=== PATIENT | male | born 1955 | race Caucasian/White ===

== ENCOUNTER 2017-05-15 13:07 | Emergency (ER) | payer SELFPAY ==
--- NOTE | 2017-05-15 13:36 | UC ---
Throat Pain/Nasal Michael HPI - HPI Summary HPI Summary: Pt presents with left sided tongue/mouth pain for the last 3 days. He tells me that he has a 2 year history of reoccurring salivary stones. He usually is able to work them out on his own by chewing gum, sour candy, and massaging the area - this one is not coming out. He is now having pain in the left submandibular area. Still able to eat and drink, but with pain, Denies fever, chills, or recent illness. - History of Current Complaint Chief Complaint: UCGeneralIllness Stated Complaint: MOUTH SORE Time Seen by Provider: 05/15/17 13:31 Hx Obtained From: Patient Onset/Duration: Gradual Onset Severity: Severe Pain Intensity: 9 Pain Scale Used: 0-10 Numeric - Allergies/Home Medications Allergies/Adverse Reactions: Allergies Allergy/AdvReac Type Severity Reaction Status Date / Time No Known Allergies Allergy Verified 05/15/17 13:19 PMH/Surg Hx/FS Hx/Imm Hx - Surgical History Surgical History: Yes Surgery Procedure, Year, and Place: spinal surgery - Family History Known Family History: Positive: Unknown - Social History Lives: With Family Alcohol Use: None Substance Use Type: None Smoking Status (MU): Heavy Every Day Tobacco Smoker Type: Cigarettes Amount Used/How Often: 1/2 ppd Household Exposure Type: Cigarettes Cessation Counseling: Counseled 3+Min - 10 Min - Immunization History Most Recent Influenza Vaccination: NOT UTD Review of Systems Constitutional: Negative Skin: Negative Eyes: Negative ENT: Other - Salivary pain Respiratory: Negative Cardiovascular: Negative All Other Systems Reviewed And Are Negative: Yes Physical Exam Triage Information Reviewed: Yes Appearance: Well-Appearing, No Pain Distress, Well-Nourished Vital Signs: Initial Vital Signs Temp 97.6 F 05/15/17 13:09 Pulse 95 05/15/17 13:09 Resp 18 05/15/17 13:09 BP 113/84 05/15/17 13:09 Pulse Ox 96 05/15/17 13:09 Vital Signs Reviewed: Yes Eyes: Positive: Conjunctiva Clear. Negative: Conjunctiva Inflamed, Discharge ENT: Positive: Pharynx normal, TMs normal, Uvula midline, Other - ~2-3mm stone in the left salivary duct that appears to be moderately obstructive.. Negative : Pharyngeal erythema, Nasal congestion, Nasal drainage, TM bulging, TM dull, TM red, Tonsillar swelling, Tonsillar exudate, Muffled voice, Hoarse voice, Dental tenderness, Sinus tenderness Dental: Negative: Dental Fracture @, Abscess @, Cellulitis @, Cervical Lymphadenopathy, Bleeding Neck: Positive: Supple, No Lymphadenopathy, Other: - TTP left submandibular Respiratory: Positive: Lungs clear, Normal breath sounds, No respiratory distress Cardiovascular: Positive: RRR, No Murmur, Pulses Normal Neurological: Positive: Alert Psychological: Positive: Age Appropriate Behavior Skin: Negative: rashes Throat Pain/Nasal Course/Dx - Course Course Of Treatment: Sialolithiasis with Sialoadenitis - refer to ENT. Continue with sour candy, gum, and massage. Will cover him for infection with Keflex and rx for lidocaine for pain. - Differential Dx/Diagnosis Provider Diagnoses: Sialolithiasis with Sialoadenitis left submandibular Discharge - Discharge Plan Condition: Stable Disposition: HOME Prescriptions: Cephalexin CAP* [Keflex CAP*] 500 mg PO TID #14 cap Lidocaine 2% VISCOUS* [Xylocaine 2% Viscous*] 10 ml SWISH SPIT BID PRN #100 ml PRN Reason: Pain Patient Education Materials: Sialoadenitis (ED) Referrals: No Primary Care Phys,NOPCP [Primary Care Provider] - Reinaldo Batista MD [Medical Doctor] - As Soon As Possible Additional Instructions: If you develop a fever, shortness of breath, chest pain, new or worsening symptoms - please call your PCP or go to the ED.
== END 2017-05-15 13:52 | disposition home or self-care (01) ==
LOC: UCEAST 13:07
DX: K11.5 Sialolithiasis (principal); K11.20 Sialoadenitis, unspecified; Z71.6 Tobacco abuse counseling; F17.210 Nicotine dependence, cigarettes, uncomplicated
CPT/HCPCS: 99202; G0463

== ENCOUNTER 2017-07-27 11:14 | Emergency (ER) | payer MEDICARE ==
--- NOTE | 2017-07-27 13:05 | RAD ---
INDICATION: Left hip pain. COMPARISON: There are no prior studies available for comparison. TECHNIQUE: An AP view of the pelvis and frontal and lateral views of the left hip were obtained. FINDINGS: The bones are in normal alignment. No fracture is seen. There is mild bilateral osteoarthritic change in the hips. IMPRESSION: MILD BILATERAL OSTEOARTHRITIC CHANGE IN THE HIPS.
[2017-07-27] MEDS ORDERED: Ketorolac INJ* 30 MG/ML 1 ML VIAL IM ONE (13:09)
[2017-07-27 13:38] VITALS: BP 111/87
--- NOTE | 2017-07-28 08:07 | ED ---
Josue Leon Angela scribed for Florencio Obrien MD on 07/27/17 at 1157 . Lower Extremity - HPI Summary HPI Summary: Pt is a 61 y/o male [facility] c/o left hip pain s/p fall a couple of days ago. Pt reports he fell 2 days ago, injuring his left hip. Denies head strike or LOC. Pt notes he is able to ambulate but it is painful. His pain is aggravated with leg movement. His pain is alleviated with rest. At its worst his pain is rated 9 out of 10 in severity. At rest his pain is rated 6/10 in severity. Denies knee pain. - History of Current Complaint Stated Complaint: FALL/LT HIP Time Seen by Provider: 07/27/17 11:47 Hx Obtained From: Patient Mechanism Of Injury: Fall From A Standing Position Onset of Pain: Immediate Onset/Duration: Days Severity Currently: Moderate Pain Intensity: 7 Pain Scale Used: 0-10 Numeric Timing: Lasting Days Location: Is Discrete @ - left hip Associated Signs And Symptoms: Positive: Negative Aggravating Factor(s): Nothing Alleviating Factor(s): Nothing - Allergies/Home Medications Allergies/Adverse Reactions: Allergies Allergy/AdvReac Type Severity Reaction Status Date / Time No Known Allergies Allergy Verified 07/27/17 11:31 Home Medications: Home Medications Ibuprofen TAB* [Advil TAB*] 600 mg PO BID PRN 07/27/17 [History Confirmed ] PMH/Surg Hx/FS Hx/Imm Hx Endocrine/Hematology History: Denies: Hx Diabetes Cardiovascular History: Denies: Hx Hypertension Musculoskeletal History: Reports: Other Musculoskeletal History - C3-4 laminectomy and fusion, t-l bulging discs - Surgical History Surgery Procedure, Year, and Place: spinal surgery - Family History Known Family History: Negative: Hypertension, Diabetes Family History: Father: Alzheimer's - Social History Alcohol Use: None Substance Use Type: Reports: None Smoking Status (MU): Heavy Every Day Tobacco Smoker Type: Cigarettes Amount Used/How Often: 1/2 ppd Review of Systems Negative: Fever, Chills Cardiovascular: Negative Respiratory: Negative Gastrointestinal: Negative Musculoskeletal: Other - left hip pain Neurological: Negative All Other Systems Reviewed And Are Negative: Yes Physical Exam - Summary Physical Exam Summary: VITAL SIGNS: Reviewed. GENERAL: Patient is a well-developed and nourished male who is lying comfortable in the stretcher. Patient is not in any acute respiratory distress. HEAD AND FACE: No signs of trauma. No ecchymosis, hematomas or skull depressions. No sinus tenderness. EYES: PERRLA, EOMI x 2, No injected conjunctiva, no nystagmus. EARS: Hearing grossly intact. Ear canals and tympanic membranes are within normal limits. MOUTH: Oropharynx within normal limits. NECK: Supple, trachea is midline, no adenopathy, no JVD, no carotid bruit, no c- spine tenderness, neck with full ROM. CHEST: Symmetric, no tenderness at palpation LUNGS: Clear to auscultation bilaterally. No wheezing or crackles. CVS: Regular rate and rhythm, S1 and S2 present, no murmurs or gallops appreciated. ABDOMEN: Soft, non-tender. No signs of distention. No rebound no guarding, and no masses palpated. Bowel sounds are normal. EXTREMITIES: FROM in all major joints, no edema, no cyanosis or clubbing. NEURO: Alert and oriented x 3. No acute neurological deficits. Speech is normal and follows commands. SKIN: Dry and warm Triage Information Reviewed: Yes Vital Signs Reviewed: Yes Diagnostics - Laboratory Lab Statement: Any lab studies that have been ordered have been reviewed, and results considered in the medical decision making process. - Radiology Left hip and pelvis XR Xray Interpretation: Positive (See Comments) - IMPRESSION: mild bilateral osteoarthritic change in the hips. Dr. Obrien has reviewed this radiology report. Radiology Interpretation Completed By: Radiologist Re-Evaluation - Re-Evaluation First Eval Re-Evaluation Time: 13:35 Comment: I reviewed the XR results with the pt. He will be discharged home. Lower Extremity Course/Dx - Course Assessment/Plan: Pt is a 61 y/o male presenting to [facility] c/o left hip pain s/p fall a couple of days ago. Pt reports he fell 2 days ago, injuring his left hip. Denies head strike or LOC. Pt notes he is able to ambulate but it is painful. His pain is aggravated with leg movement. His pain is alleviated with rest. At its worst his pain is rated 9 out of 10 in severity. At rest his pain is rated 6/10 in severity. Denies knee pain. Left hip and pelvis XR is negative for an acute dislocation or fracture, it shows mild bilateral osteoarthritic change in the hips. In the ED course the pt was given Toradol for the pain and after this medication his pain decreased. Therefore, the pt will be discharged home with follow up from his PCP. I discussed all the findings and test results with the patient. All questions were answered to patient satisfaction. There were no further complaints or concerns. Pt was given a prescription for [place] for the pain. He is instructed to return to the ED for any worsening or new symptoms. Pt is hemodynamically stable, alert and oriented x3. - Diagnoses Provider Diagnoses: Left hip pain Discharge - Sign-Out/Discharge Documenting (check all that apply): Discharge - discharge to home - Discharge Plan Condition: Stable Disposition: HOME Prescriptions: Hydrocodone/Acetaminophen [[place] 5-325 Tablet] 1 each PO Q6H PRN #10 tablet MDD 4 PRN Reason: Pain Patient Education Materials: Hip Pain (ED) Referrals: No Primary Care Phys,NOPCP [Primary Care Provider] - [facility] [Outside] Additional Instructions: Please establish a primary care provider and follow up with your primary. RETURN TO THE ED FOR ANY NEW OR WORSENING SYMPTOMS. The documentation as recorded by the Josue dowd Angela accurately reflects the service I personally performed and the decisions made by me, Florencio Obrien MD.
== END 2017-07-27 13:36 | disposition home or self-care (01) ==
LOC: ED 11:14
DX: M25.552 Pain in left hip (principal); M16.0 Bilateral primary osteoarthritis of hip; F17.210 Nicotine dependence, cigarettes, uncomplicated
CPT/HCPCS: 96372; 99282; J1885

== ENCOUNTER 2017-10-18 06:02 | Observation (INO) | payer MEDICARE ==
[~2017-10-18 06:02] MED LIST: Buffered Lidocaine 0.9% SYRIN* 5 ML/SYR SYRINGE INTRADERM ONE
[2017-10-18] MEDS ORDERED: Buffered Lidocaine 0.9% SYRIN* 5 ML/SYR SYRINGE ONE (06:21)
[2017-10-18] MEDS ORDERED: ceFAZolin 2 GM PREMIX (*) 2 GM/50 ML BAG IVPB ONE (06:28)
[2017-10-18] MEDS ORDERED: Bacitracin IV* 50,000 UNITS INJ ONE (06:43)
[2017-10-18] MEDS ORDERED: Lidocaine 1% MPF wEPI 200,000* 30 ML SDV ONE (06:43)
[2017-10-18] MEDS ORDERED: Thrombin 5,000 UNITS* 1 APPLIC KIT - topical use - TOPICAL ONE (06:43)
[2017-10-18] MEDS ORDERED: fentaNYL* 50 MCG/ML 2 ML VIAL (100 MCG VIAL) ONE ×2 (07:07→07:57)
[2017-10-18] MEDS ORDERED: Midazolam* 1 MG/ML 2 ML VIAL (2 MG) ONE (07:08)
[2017-10-18] MEDS ORDERED: Lidocaine 2% PF * 5 ML VIAL ONE ×2 (07:30→07:51)
[2017-10-18] MEDS ORDERED: Mivacurium Chloride* 20 MG/10 ML VIAL IV ONE (07:32)
[2017-10-18] MEDS ORDERED: Famotidine IV* 10 MG/ML 2 ML (20 mg) ONE (07:32)
[2017-10-18] MEDS ORDERED: Dexamethasone IV* 4 MG/ML 1 ML (4 MG) ONE (07:32)
[2017-10-18] MEDS ORDERED: Propofol* 10 MG/ML 20 ML BTL IV PUSH ONE (07:32)
[2017-10-18] MEDS ORDERED: fentaNYL* 50 MCG/ML 2 ML VIAL (100 MCG VIAL) IV PRN (08:17)
[2017-10-18] MEDS ORDERED: PROCHLORPERAZINE INJ 5 MG/ML 2 ML VIAL IV PRN (08:17)
[2017-10-18] MEDS ORDERED: DiMENhydriNATE IV* 50 MG/ML VIAL IV PUSH PRN (08:17)
[2017-10-18] MEDS ORDERED: Acetaminophen TAB* 325 MG PO PRN ×2 (08:17→08:39)
[2017-10-18] MEDS ORDERED: diPHENhydraMINE IV* 50 MG/ML 1 ml VIAL (BENADRYL) IV PRN (08:17)
[2017-10-18] MEDS ORDERED: Nalbuphine* 10 MG/ML 1 ML VIAL IV PRN (08:17)
[2017-10-18] MEDS ORDERED: Levalbuterol 1.25MG/0.5ML NEB INH PRN (08:17)
[2017-10-18] MEDS ORDERED: Naloxone* 0.4 MG/ML 1 ML VIAL IV PRN (08:17)
[2017-10-18] MEDS ORDERED: HYDROcodone/ACETAMIN 5-325 MG* 1 TAB PO PRN (08:17)
[2017-10-18] MEDS ORDERED: Magnesium Hydroxide LIQ* 30 ML UDC PO PRN (08:39)
[2017-10-18] MEDS ORDERED: Ondansetron ODT TAB* 4 MG PO PRN (08:42)
[2017-10-18] MEDS ORDERED: Rosuvastatin (NF) 20 MG TAB PO SCH (09:00)
--- NOTE | 2017-10-18 10:02 | RAD ---
INDICATION: Back pain TECHNIQUE: A single crosstable lateral view was obtained in the operating room. FINDINGS: There is a surgical retracting device overlying the lower lumbar spine. There is a surgical device with the tip at the L4/L5 level. Degenerative changes of the lower lumbar spine are similar to prior imaging. IMPRESSION: Intraoperative crosstable lateral lumbar spine radiograph as described above.
[2017-10-18] MEDS ORDERED: HYDROcodone/ACETAMIN 5-325 MG* 1 TAB ONE (10:43)
[2017-10-18] MEDS ORDERED: Gabapentin CAP(*) 300 MG ONE (10:43)
[2017-10-18] MEDS: HYDROcodone/ACETAMIN 5-325 MG* 1 TAB PO PRN ×2 (10:44→15:15)
[2017-10-18] MEDS ORDERED: Nicotine Inhaler* 10 MG AMP INH PRN (10:45)
[2017-10-18] MEDS: Gabapentin CAP(*) 300 MG PO SCH ×2 (10:45→15:11)
[2017-10-18] MEDS ORDERED: Mouth Piece, Nicotine* 1 EACH CARTRIDGE INH PRN (10:45)
[2017-10-18] MEDS ORDERED: Nicotine PATCH 21 MG/24 HR* PATCH TRANSDERM SCH (11:00)
[2017-10-18] MEDS ORDERED: Atorvastatin* 40 MG TAB PO SCH (13:00)
--- NOTE | 2017-10-18 14:53 | PN ---
Progress Note - Progress Note Date of Service: 10/18/17 SOAP: Subjective: [S/p lumbar discectomy L4-5 left, POD #0. Patient complains of low back pain, lower extremity pain resolved. Ambulating independently. Eating, drinking and voiding without difficulty. Denies headache, nausea and vomiting. Feels well enough, would like to go home. ] Objective: [ Vital Signs: Temp Pulse Resp BP Pulse Ox 96.6 F 71 16 138/90 98 10/18/17 08:45 10/18/17 09:30 10/18/17 08:55 10/18/17 09:30 10/18/17 09:30 General: Alert and laying comfortably in bed. Neuro: Motor and sensory intact. Incision: Intact with jojo. No swelling or erythema. Dressing with small amount blood, dry dressing placed. ] Assessment: [Stable post-op. ] Plan: [1. Discharge home today. 2. Discharge instructions discussed with the patient. ]
[2017-10-18 15:20] VITALS: BP 133/80
[2017-10-19] MEDS ORDERED: Nicotine Patch Removal NOTE FOLLOW UP SCH (06:00)
--- NOTE | 2017-10-20 21:54 | OP ---
OPERATIVE REPORT: DATE OF OPERATION: 10/18/17 DATE OF : 59 PRIMARY SURGEON: Barron Connors MD JEWEL STAKER: SEBASTIAN Sanchez ANESTHESIA: General. PRE-OP DIAGNOSIS: Herniated nucleus pulposus L4-5 on the left. POST-OP DIAGNOSIS: Herniated nucleus pulposus L4-5 on the left. OPERATIVE PROCEDURE: Lumbar diskectomy L4-5 on the left with microdissection. DESCRIPTION OF OPERATION: After satisfactory general anesthesia was obtained, the patient was placed on the operating table in the prone position with the chest supported on the Aubrey frame and the ba ck slightly flexed. The lumbar region was then clipped, prepped and draped in a sterile manner for l umbar laminectomy and a skin incision outlined from L4 to L5. This incision was infiltrated with 1% Xylocaine with epinephrine after which it was turned down sharply to the level of the lumbar fascia. The fascia was divided along the spinous processes of L4 and L5 and the paraspinal musculature strip ped away from the posterior elements utilizing a periosteal elevator and a monopolar cautery. An int raoperative x-ray was obtained verifying proper interspace localization after which a partial hemilam inectomy was carried out by removing the inferior aspect of the L4 lamina and medial aspect of the fa cet complex with a combination of a Midas Eran drill and Kerrison rongeurs. This was carried superior ly until the attachment of ligamentum flavum was taken down. Ligamentum flavum was then removed with the Kerrison. At this point of procedure, the operating microscope was brought into the field and t he remainder of the procedure was done under microscopic visualization. Projecting beneath the L5 ner ve root was a subcapsular herniation of the disk material. An opening was made in the posterior long itudinal ligament and the disk space was cleared of any loose disk material using pituitary forceps a nd curettes. It was felt that a satisfactory decompression had been achieved. After assuring adequat e hemostasis, the wound was thoroughly irrigated after which a piece of Gelfoam was placed over the l aminectomy defect. The fascia was then reapproximated with 0 Vicryl sutures, the subcutaneous tissue s closed with 3-0 Vicryl suture, and the skin closed with skin clips. The estimated blood loss was l ess than 50 cc and the final sponge, padding, and needle counts were correct. The patient was taken to the recovery room extubated and in stable condition. [id number]/[facility] #: [id number]
== END 2017-10-18 16:29 | disposition home or self-care (01) ==
LOC: OR 06:02 → SSU 11:21
PROVIDERS: ADMIT Neurological Surgery; ATTEND Neurological Surgery
PROC: 0SB20ZZ Excision of Lumbar Vertebral Disc, Open Approach (ICD-10-PCS; 2017-10-18)
PROC: 01NB0ZZ Release Lumbar Nerve, Open Approach (ICD-10-PCS; principal; 2017-10-18 07:30)
DX: M51.26 Other intervertebral disc displacement, lumbar region (principal); F17.210 Nicotine dependence, cigarettes, uncomplicated; M51.16 Intervertebral disc disorders with radiculopathy, lumbar region
CPT/HCPCS: 72100; 88304; A9270-GY; G0378; J0690; J1100; J2001; J2250; J2704; J3010

== ENCOUNTER 2018-06-25 07:19 | Observation (INO) | payer MEDICARE ==
[~2018-06-25 07:19] MED LIST changes: -Buffered Lidocaine 0.9% SYRIN* 5 ML/SYR SYRINGE INTRADERM ONE; +Buffered Lidocaine 1% SYRIN* 1 ML/SYRINGE INTRADERM ONE; +Lactated Ringers 1000 ML Bag* 1,000 ML IV SCH
[2018-06-25] MEDS ORDERED: ceFAZolin 2 GM PREMIX in ORs 2 GM/50 ML BAG IVPB ONE (07:49)
[2018-06-25] MEDS ORDERED: Buffered Lidocaine 1% SYRIN* 1 ML/SYRINGE INTRADERM ONE (07:49)
[2018-06-25] MEDS ORDERED: Lidocaine 2% PF * 5 ML VIAL ONE (08:39)
[2018-06-25] MEDS ORDERED: fentaNYL* 50 MCG/ML 2 ML VIAL (100 MCG VIAL) ONE (08:39)
[2018-06-25] MEDS ORDERED: Propofol* 10 MG/ML 20 ML BTL ONE (08:39)
[2018-06-25] MEDS ORDERED: Midazolam* 1 MG/ML 2 ML VIAL (2 MG) ONE (08:39)
[2018-06-25] MEDS ORDERED: Rocuronium* 10 MG/ML VIAL ONE (08:39)
[2018-06-25] MEDS ORDERED: KETAMINE HCL* 50 MG/ML 10 ML VIAL ONE (08:40)
[2018-06-25] MEDS ORDERED: Bacitracin IV* 50,000 UNITS INJ ONE (10:20)
[2018-06-25] MEDS ORDERED: Thrombin 5,000 UNITS* 1 APPLIC KIT - topical use - TOPICAL ONE (10:20)
[2018-06-25] MEDS ORDERED: Lidocain 1% EPI 1:100,000 * 30 ML MDV ONE (10:20)
[2018-06-25] MEDS ORDERED: Ondansetron INJ* 2 MG/ML VIAL ONE (11:18)
[2018-06-25] MEDS ORDERED: Dexamethasone IV* 4 MG/ML 1 ML (4 MG) ONE (11:18)
[2018-06-25] MEDS ORDERED: Ketorolac INJ* 30 MG/ML 1 ML VIAL ONE (11:18)
[2018-06-25] MEDS ORDERED: Metoclopramide IV* 5 MG/ML 2 ML VIAL ONE (11:18)
[2018-06-25] MEDS ORDERED: HYDROmorphone INJ1* 1 MG/ML SYRINGE ONE ×2 (11:55→12:19)
[2018-06-25] MEDS ORDERED: Naloxone* 0.4 MG/ML 1 ML VIAL IV PRN (11:58)
[2018-06-25] MEDS ORDERED: Acetaminophen TAB* 325 MG PO PRN ×2 (11:58→13:50)
[2018-06-25] MEDS ORDERED: Neostigmine Methylsulfate* 1 MG/ML 10 ML VIAL (1 mg/ml) ONE (11:59)
[2018-06-25] MEDS ORDERED: Glycopyrrolate IV* 0.2 MG/ML 1 ML VIAL ONE (11:59)
[2018-06-25] MEDS: HYDROmorphone INJ1* 1 MG/ML SYRINGE IV PRN ×2 (12:20→12:30)
[2018-06-25] MEDS ORDERED: oxyCODONE TAB* 5 MG TAB ONE (12:25)
[2018-06-25] MEDS: oxyCODONE TAB* 5 MG TAB PO PRN ×2 (12:26→12:27)
[2018-06-25] MEDS ORDERED: Acetaminophen TAB* 325 MG ONE (12:50)
[2018-06-25] MEDS ORDERED: HYDROcodone/ACETAMIN 5-325 MG* 1 TAB PO PRN (13:50)
[2018-06-25] MEDS ORDERED: Magnesium Hydroxide LIQ* 30 ML UDC PO PRN (13:50)
[2018-06-25] MEDS ORDERED: Ondansetron INJ* 2 MG/ML VIAL IV PRN (13:50)
[2018-06-25] MEDS ORDERED: Lactated Ringers 1000 ML Bag* 1,000 ML IV SCH (14:00)
--- NOTE | 2018-06-25 15:02 | PN ---
Progress Note - Progress Note Date of Service: 06/25/18 SOAP: Subjective: [S/p repeat lumbar discectomy L4-5 left today Pre-op leg pain improved Ambulating independently Denies headache, nausea Eating and drinking Pain controlled with PO meds Denies lower extremity numbness, weakness, pain] Objective: [ Vital Signs: Temp Pulse Resp BP Pulse Ox 96.8 F 81 17 126/68 97 06/25/18 12:17 06/25/18 13:15 06/25/18 13:15 06/25/18 13:15 06/25/18 13:15 General: Resting comfortably in bed, NAD Neuro: Motor and sensory intact Incision: Dressing in place, clean and dry. No swelling. ] Assessment: [Satisfactory post-op] Plan: [1. Discharge home today 2. Discharge instructions discussed]
[2018-06-25 15:54] VITALS: BP 113/77
--- NOTE | 2018-06-28 10:17 | OP ---
DATE OF OPERATION: 06/25/18 - ROOM #[id number] DATE OF : 59 PRIMARY SURGEON: Barron Connors MD SYNTHETIC STAPLE EXTRUDER: SEBASTIAN Sanchez. ANESTHESIA: General. PRE-OP DIAGNOSIS: Recurrent herniated nucleus pulposus, L4-5 on the left. POST-OP DIAGNOSIS: Recurrent herniated nucleus pulposus, L4-5 on the left. OPERATIVE PROCEDURE: Redo lumbar diskectomy L4-5 on the left with microdissection. DESCRIPTION OF PROCEDURE: After satisfactory general anesthesia was obtained, the patient was placed on the operating table in the prone position with the chest supported on the Aubrey frame and the back slightly flexed. The lumbar region was then clipped, prepped, and draped in a sterile manner for lumbar laminectomy, and a skin incision outlined from L4 to L5 along the previous incision. This incision was infiltrated with 1% Xylocaine with epinephrine, after which we turned in sharply to the level of the lumbar fascia and scar tissue. The fascia was divided along the spinous processes of L4 and L5 and the paraspinous musculature and scar tissue stripped away from these posterior elements using the periosteal elevator and monopolar cautery. Utilizing curettes, the outline of the previous hemilaminectomy was dissected free. Kerrisons were then used to extend the laminectomy superiorly, inferiorly and laterally until normal tissue planes could be seen. At this point of the procedure, the operating microscope was brought into the field and the remainder of the procedure done under microscopic visualization. The L5 nerve root was noted to be compressed and pushed dorsally by a large recurrent disk herniation. An opening was made in the thinly stretched posterior longitudinal ligament and scar and multiple fragments of disk material removed from beneath the nerve root. The opening into the disk base was then enlarged and the disk space cleared of any loose disk material using pituitary forceps and curettes. At the conclusion of the decompression, the L5 nerve root was noted to be free in its course. After assuring adequate hemostasis, the wound was thoroughly irrigated after which the fascia was reapproximated with 0 Vicryl suture and the subcutaneous tissue closed with 3-0 Vicryl suture and the skin closed with skin clips. The estimated blood loss was less then 50 cc and final sponge, herb, and needle counts were correct. The patient was taken to the recovery room extubated and in stable condition. [id number]/[facility] #: [id number] LYNN
== END 2018-06-25 15:53 | disposition home or self-care (01) ==
LOC: OR 07:19 → SSU 13:50
PROVIDERS: ADMIT Neurological Surgery; ATTEND Neurological Surgery
DX: M51.26 Other intervertebral disc displacement, lumbar region (principal); M54.9 Dorsalgia, unspecified; F17.210 Nicotine dependence, cigarettes, uncomplicated
CPT/HCPCS: 96374; 96375; A9270-GY; G0378; J0690; J1100; J1170; J1885; J2250; J2405; J2704; J2710; J2765; J3010

== ENCOUNTER 2021-04-02 00:41 | Inpatient (IN) ==
[2021-04-02] MEDS ORDERED: Lactated Ringers 1000 ml BAG 1,000 ML IV SCH (01:00)
[2021-04-02 01:32] LABS: Albumin/Globulin Ratio 1.4 (1-3); C Reactive Protein 6.3 mg/L (<8.01); Calcium 9.4 mg/dL (8.6-10.3); Globulin 2.8 g/dL (2-4); Potassium 3.5 mmol/L (3.5-5.0); Total Bilirubin 0.3 mg/dL (0.2-1.0); Total Protein 6.8 g/dL (6.4-8.9); eGFR CKD-EPI 75.4 (>60)
[2021-04-02 01:33] LABS: Troponin I 0.01 ng/mL (<0.03)
[2021-04-02 01:36] LABS: ABS Basophils 0.2 10^3/ul (0-0.2); ABS Eosinophils 0.3 10^3/ul (0-0.6); ABS Lymphocytes 6.2 10^3/ul (1.0-4.8); ABS Neutrophils 10.7 10^3/ul (1.5-7.7); Eosinophil % 1.8 %; Lymphocyte % 33.8 %; Nucleated Red Blood Cells % 0.1
[2021-04-02 01:43] LABS: Rapid COVID-19 Molecular Undetected (Undetected)
[2021-04-02] MEDS ORDERED: Heparin DRIP 25,000 UNITS BAG 25,000 UNITS/500 ML BAG IV SCH (02:00)
[2021-04-02] MEDS ORDERED: Heparin 5000 UNITS/ML 1 mL VIAL IV SCH (02:00)
[2021-04-02] MEDS ORDERED: Ondansetron 4 mg VIAL 2 MG/ML 2 ml VIAL IV ONE (02:16)
[2021-04-02 02:35] LABS: Hematocrit 43 % (42-52); Hemoglobin 14.2 g/dL (14.0-18.0); Mean Corpuscular HGB Conc 33 g/dL (31-36); Mean Corpuscular Hemoglobin 30 pg (27-31); Mean Corpuscular Volume 90 fL (80-94); Mean Platelet Volume 9.6 fL (7.4-10.4); Platelet Count 255 10^3/uL (150-450); Red Blood Count 4.74 10^6 /uL (4.18-5.48); Red Cell Distribution Width 13 % (10-15); White Blood Count 18.2 10^3/uL (3.5-10.8)
[2021-04-02 02:52] LABS: Activated Partial Thrombo Time 30.4 seconds (26.0-38.0)
[2021-04-02] MEDS ORDERED: Iohexol 350 (CONTRAST) 500 ML MDV IV ONE ×2 (03:33→03:39)
[2021-04-02 03:51] LABS: Magnesium 1.8 mg/dL (1.9-2.7)
[2021-04-02 03:52] LABS: Erythrocyte Sed Rate 12 mm/Hr (0-19)
[2021-04-02 03:58] LABS: INR 1.11 (0.86-1.15)
[2021-04-02 04:09] LABS: Troponin I 0.44 ng/mL (<0.03)
[2021-04-02] MEDS ORDERED: Magnesium Sulfate 2 gm BAG 2 GM/50 ML BAG IVPB ONE (05:13)
[2021-04-02] MEDS ORDERED: Heparin 1,000 UNIT/ML 10 ml (10,000 UNITS) CATHLAB/DIALYSIS ONE (05:16)
[2021-04-02] MEDS ORDERED: VERAPAMIL 2.5 MG/ML 2 ML VIAL ** 5 mg/2 ml ONE (05:16)
[2021-04-02] MEDS ORDERED: nitroGLYCERIN DRIP 25,000 MCG/250 ML BTL ONE (05:17)
[2021-04-02] MEDS ORDERED: Lidocaine 1% VIAL 10 MG/ML VIAL ONE (05:17)
[2021-04-02] MEDS ORDERED: Heparin 2 UNITS/ML 1000 mls 3,000 ML IV ONE (05:17)
[2021-04-02] MEDS ORDERED: Midazolam 5 mg/5 ml VIAL 1 mg/ml 5 ml VIAL (5 mg) ONE (05:17)
[2021-04-02] MEDS ORDERED: fentaNYL 100 mcg/2 ml 50 MCG/ML VIAL ONE ×2 (05:18→08:47)
[2021-04-02] MEDS ORDERED: Iohexol 350 (CONTRAST) 200 ML MDV IV ONE ×4 (05:33→07:53)
[2021-04-02] MEDS ORDERED: Magnesium Sulfate 2 gm BAG 2 GM/50 ML BAG ONE (06:03)
[2021-04-02] MEDS ORDERED: DOPamine 800 MG/250 ML IVPREM 800 MG/250 ML ML CENTR ONE (06:06)
[2021-04-02] MEDS ORDERED: Bivalirudin 250 MG VIAL ONE ×2 (06:11→07:12)
[2021-04-02] MEDS ORDERED: Norepinephrine 16MCG/ML IVPRE 4,000 MCG/250 ML BAG IV ONE ×2 (06:16→10:05)
[2021-04-02] MEDS ORDERED: Ondansetron 4 mg VIAL 2 MG/ML 2 ml VIAL ONE (06:32)
[2021-04-02] MEDS ORDERED: Amiodarone 150 mg IVPREMIX 150 MG/100 ML BAG IV ONE (06:38)
[2021-04-02] MEDS ORDERED: Heparin 2 UNITS/ML 1000 mls 1,000 ML IV ONE ×2 (07:07→08:32)
[2021-04-02] MEDS ORDERED: Eptifibatide IV (Load dose) 2 MG/ML 10 ml VIAL ONE (07:35)
[2021-04-02] MEDS ORDERED: NS 0.9% 1000 ml BAG 1,000 ML IV SCH (09:45)
[2021-04-02] MEDS: Norepinephrine 16MCG/ML IVPRE 4,000 MCG/250 ML BAG IV SCH ×3 (10:30→22:20)
[2021-04-02 15:29] LABS: Troponin I > 79.00 ng/mL (<0.03)
[2021-04-02 15:29] LABS: Troponin I > 80.00 ng/mL (<0.03)
[2021-04-02] MEDS ORDERED: Lactated Ringers 500 ml BAG 500 ML IV ONE (22:24)
[2021-04-02] MEDS ORDERED: Lactated Ringers 500 ml BAG 500 ML IV SCH (23:00)
[2021-04-03] MEDS: Norepinephrine 16MCG/ML IVPRE 4,000 MCG/250 ML BAG IV SCH (00:37)
[2021-04-03] MEDS ORDERED: Norepinephrine 16MCG/ML IVPRE 4,000 MCG/250 ML BAG IV SCH (04:23)
[2021-04-03 05:50] LABS: ALT 56 U/L (7-52); AST 255 U/L (13-39); Albumin 3.5 g/dL (3.2-5.2); Albumin/Globulin Ratio 1.4 (1-3); Alkaline Phosphatase 70 U/L (35-149); Anion Gap 6 mmol/L (2-11); Blood Urea Nitrogen 15 mg/dL (6-24); CO2 Carbon Dioxide 25 mmol/L (22-32); Calcium 8.4 mg/dL (8.6-10.3); Chloride 104 mmol/L (101-111); Cholesterol 195 mg/dL; Globulin 2.5 g/dL (2-4); Glucose 127 mg/dL (70-100); HDL Cholesterol 33.9 mg/dL; LDL Cholesterol 142 mg/dL; Potassium 4.3 mmol/L (3.5-5.0); Sodium 135 mmol/L (135-145); Triglycerides 98 mg/dL; eGFR CKD-EPI 74.6 (>60)
[2021-04-03 06:08] LABS: Troponin I > 80.00 ng/mL (<0.03)
[2021-04-03 06:20] LABS: Magnesium 1.9 mg/dL (1.9-2.7)
[2021-04-03 10:58] LABS: ABS Basophils 0.1 10^3/ul (0-0.2); ABS Lymphocytes 3.1 10^3/ul (1.0-4.8); ABS Monocytes 1.3 10^3/ul (0-0.8); Eosinophil % 0.3 %; Hematocrit 36 % (42-52); Hemoglobin 12.1 g/dL (14.0-18.0); Mean Corpuscular HGB Conc 34 g/dL (31-36); Mean Corpuscular Hemoglobin 30 pg (27-31); Mean Corpuscular Volume 89 fL (80-94); Mean Platelet Volume 8.8 fL (7.4-10.4); Platelet Count 194 10^3/uL (150-450); Red Blood Count 3.98 10^6 /uL (4.18-5.48); Red Cell Distribution Width 13 % (10-15); White Blood Count 15.5 10^3/uL (3.5-10.8)
[2021-04-03] MEDS ORDERED: Metoprolol Tartrate 5 mg VIAL 5 ml VIAL (1 mg/ml) IV ONE (11:28)
[2021-04-03] MEDS ORDERED: Perflutren Lipid Microsphere 3 ML VIAL ONE (11:51)
[2021-04-03] MEDS ORDERED: Levalbuterol 1.25MG/0.5ML NEB.SOL INH PRN (15:06)
[2021-04-03] MEDS ORDERED: Albuterol/Ipratropium NEB.SOL (2.5/0.5 MG) 3 ML NEB.SOLN INH PRN (15:06)
[2021-04-03] MEDS ORDERED: Levalbuterol 1.25MG/0.5ML NEB.SOL ONE (15:09)
[2021-04-03] MEDS: Levalbuterol 1.25MG/0.5ML NEB.SOL INH SCH ×3 (17:20→22:53)
[2021-04-04] MEDS: Levalbuterol 1.25MG/0.5ML NEB.SOL INH SCH ×2 (03:01→07:47)
[2021-04-04 05:07] LABS: ABS Monocytes 1.2 10^3/ul (0-0.8); ABS Neutrophils 11.4 10^3/ul (1.5-7.7); Eosinophil % 0.3 %; Hematocrit 35 % (42-52); Lymphocyte % 13.8 %; Mean Corpuscular HGB Conc 35 g/dL (31-36); Mean Corpuscular Hemoglobin 31 pg (27-31); Mean Corpuscular Volume 89 fL (80-94); Mean Platelet Volume 9.3 fL (7.4-10.4); Platelet Count 193 10^3/uL (150-450); Red Blood Count 3.94 10^6 /uL (4.18-5.48); Red Cell Distribution Width 13 % (10-15); White Blood Count 14.6 10^3/uL (3.5-10.8)
[2021-04-04 05:35] LABS: Anion Gap 7 mmol/L (2-11); Blood Urea Nitrogen 13 mg/dL (6-24); CO2 Carbon Dioxide 21 mmol/L (22-32); Calcium 8.3 mg/dL (8.6-10.3); Chloride 106 mmol/L (101-111); Glucose 106 mg/dL (70-100); Magnesium 1.8 mg/dL (1.9-2.7); Phosphorus 2.5 mg/dL (2.5-5.0); Potassium 3.7 mmol/L (3.5-5.0); Sodium 134 mmol/L (135-145); eGFR CKD-EPI 94.7 (>60)
[2021-04-04 05:40] LABS: Troponin I 30.96 ng/mL (<0.03)
[2021-04-04] MEDS ORDERED: Magnesium Sulfate 2 gm BAG 2 GM/50 ML BAG IVPB ONE (06:19)
[2021-04-04] MEDS ORDERED: Potassium Chloride LIQUID 20 MEQ/15 ML LIQUID PO ONE (06:20)
[2021-04-04] MEDS ORDERED: Flu vaccine *QUAD* 2021-22* 0.5 ML SYRINGE IM ONE (09:00)
[2021-04-04] MEDS ORDERED: Potassium Chlor 20 meq TAB.ER PO ONE (10:00)
[2021-04-05 05:31] LABS: ABS Basophils 0.1 10^3/ul (0-0.2); ABS Eosinophils 0.2 10^3/ul (0-0.6); ABS Lymphocytes 2.7 10^3/ul (1.0-4.8); ABS Monocytes 1.2 10^3/ul (0-0.8); ABS Neutrophils 11.4 10^3/ul (1.5-7.7); Eosinophil % 1.4 %; Hematocrit 40 % (42-52); Hemoglobin 13.4 g/dL (14.0-18.0); Lymphocyte % 17.1 %; Mean Corpuscular HGB Conc 34 g/dL (31-36); Mean Corpuscular Hemoglobin 30 pg (27-31); Mean Corpuscular Volume 90 fL (80-94); Mean Platelet Volume 9.4 fL (7.4-10.4); Platelet Count 216 10^3/uL (150-450); Red Blood Count 4.43 10^6 /uL (4.18-5.48); Red Cell Distribution Width 13 % (10-15); White Blood Count 15.6 10^3/uL (3.5-10.8)
[2021-04-05 05:44] LABS: Calcium 8.6 mg/dL (8.6-10.3); Potassium 4.2 mmol/L (3.5-5.0)
[2021-04-05 05:50] LABS: Phosphorus 2.3 mg/dL (2.5-5.0); eGFR CKD-EPI 84.6 (>60)
[2021-04-06 06:53] LABS: Calcium 8.8 mg/dL (8.6-10.3); Potassium 3.8 mmol/L (3.5-5.0); eGFR CKD-EPI 88.8 (>60)
[2021-04-06 11:53] LABS: ABS Basophils 0.1 10^3/ul (0-0.2); ABS Eosinophils 0.3 10^3/ul (0-0.6); ABS Lymphocytes 2.6 10^3/ul (1.0-4.8); ABS Monocytes 1.3 10^3/ul (0-0.8); ABS Neutrophils 10.9 10^3/ul (1.5-7.7); Eosinophil % 1.9 %; Hematocrit 40 % (42-52); Hemoglobin 13.8 g/dL (14.0-18.0); Lymphocyte % 17.1 %; Mean Corpuscular HGB Conc 35 g/dL (31-36); Mean Corpuscular Hemoglobin 31 pg (27-31); Mean Corpuscular Volume 89 fL (80-94); Mean Platelet Volume 9.7 fL (7.4-10.4); Platelet Count 253 10^3/uL (150-450); Red Cell Distribution Width 13 % (10-15); White Blood Count 15.2 10^3/uL (3.5-10.8)
[2021-04-06 12:16] LABS: Troponin I 6.06 ng/mL (<0.03)
[2021-04-06] MEDS ORDERED: Morphine 2 MG/ML SYRINGE IV PRN (16:03)
[2021-04-07 07:12] LABS: Potassium 3.8 mmol/L (3.5-5.0); eGFR CKD-EPI 75.4 (>60)
[2021-04-07 11:57] VITALS: BP 139/80
== END 2021-04-07 13:00 | disposition home or self-care (01) | DRG 246 ==
LOC: ED 00:41 → ICU 05:57 → SUATTDRO 05:57 → MEDTELE 04-04 23:38
PROVIDERS: ADMIT Internal Medicine; ATTEND Internal Medicine